=== PATIENT | female | born 1960 | race Caucasian/White ===

== ENCOUNTER 2024-10-01 12:15 | Emergency (ER) | payer OTHER, SELFPAY ==
[2024-10-01 12:17] VITALS: BP 137/87; PULSE 65; RESP 16; TEMP 36.9; O2SAT 97; BMI 37.8
--- NOTE | 2024-10-01 12:31 | EKG12_ITS ---
Test Reason : CP Blood Pressure : */* mmHG Vent. Rate : 53 BPM Atrial Rate : 53 BPM P-R Int : 142 ms QRS Dur : 86 ms QT Int : 450 ms P-R-T Axes : 58 2 49 degrees QTcB Int : 422 ms Sinus bradycardia Otherwise normal ECG Confirmed by BRITTANIE PARSONS, ÓSCAR ([id number]), editor trade journal VANDANA WILHELM ([id number]) on 10/04/2024 8:17:35 AM Referred By: BRITTNEY Confirmed By: ÓSCAR GU MD
[2024-10-01 12:43] LABS: Absolute Lymphocyte Count 1.94 X10^3/uL (0.83-4.51); Absolute Neutrophil Count 3.8 X10^3/uL (2.0-7.7); Basophil# 0.07 X10^3/uL; Eosinophil# 0.33 X10^3/uL; Eosinophils% 4.9 % (0-5); Hematocrit 38.9 % (37-47); Hemoglobin 12.7 g/dL (12.0-15.0); Lymphocyte # 1.94 X10^3/ul (0.83-4.51); Lymphocyte % 28.6 % (19-41); Mean Corp Hgb Conc 32.6 g/dL (32-36); Mean Corpuscular Hgb 26.4 pg (27.0-32.0); Mean Corpuscular Volume 80.9 fL (81-99); Mean Platelet Vol. 9.1 fl (6.2-12.0); Monocyte# 0.59 X10^3/uL; Monocyte% 8.7 % (0-10); NRBC Flagged by Analyzer 0 % (0-5); Neutrophil # 3.82 X10^3/uL (2.7-7.7); Neutrophil % 56.2 % (47-70); Platelet Count 351 K/mm3 (150-450); RBC Distribution Width CV 16.7 % (11.6-14.6); RBC Distribution Width SD 48.6 fl (35.1-43.9); Red Blood Count 4.81 M/mm3 (4.2-5.4); White Blood Count 6.8 K/mm3 (4.4-11.0)
--- NOTE | 2024-10-01 13:00 | RAD_ITS ---
PROCEDURE: CHEST 1 VIEW (PORTABLE) 10/01/2024 REASON FOR EXAM: CHEST PAIN TECHNIQUE: Frontal view of the chest. COMPARISON: None. FINDINGS: Hardware: None. Heart: Normal size. Lungs: Clear. No pleural effusion. Bones: No aggressive lesion. Other: RAD/Chest 1 View (Portable) IMPRESSION: No radiographic evidence of an acute cardiopulmonary process. Reading [facility]
[2024-10-01 13:06] LABS: Anion Gap 11 (5-15); BUN 18 mg/dL (4-19); BUN/Creat Ratio 27.6 RATIO (10-20); Calcium,Total 9.6 mg/dL (7.6-11.0); Carbon Dioxide 25.2 mmol/L (21.0-32.0); Chloride 103 mmol/L (98-108); Creatinine, Serum 0.66 mg/dL (0.70-1.20); EST Glomerular Filtration Rate 99 (>60); Estimated Creatinine Clearance 105.18 ml/min (50-250); Glucose 112 mg/dL (70-99); Potassium 4.2 mmol/L (3.3-5.1); Sodium Level 140 mmol/L (133-145); Troponin T High Sensitivity 8 ng/L (<=14)
[2024-10-01 13:16] VITALS: BP 140/74; PULSE 52; RESP 17; O2SAT 94
--- NOTE | 2024-10-01 13:21 | EDS_ITS ---
HPI History of Present Illness Chief Complaint: Chest Pain Narrative Narrative: 64-year-old female past medical history of coronary artery disease with 3 stents placed last year after NSTEMI is visiting from [place]. She states her is working up here locally. This morning around 11 or 11:30 in the morning, approximately 2 hours ago, she began having chest pressure. It radiates up to the left side of her face and jaw. She slightly nauseated but not diaphoretic, no vomiting. This is how she felt the last time she had a heart attack which was 3 to 4 weeks after her last COVID immunization. She states that she has 2 stents in the LAD and 1 in the front of her heart. No exacerbating or alleviating factors. She does take baby aspirin as well as furosemide and hydrochlorothiazide and potassium as well. PFSH PFS Medical History (Updated 10/01/24 @ 15:14 by Akira Gupta MD) NSTEMI (non-ST elevated myocardial infarction) Medical History no medical history Allergy/AdvReac Type Severity Reaction Status Date / Time adhesive Allergy Rash Verified 10/01/24 12:20 hydrocodone Allergy Other Verified 10/01/24 12:20 scopolamine Allergy Other Verified 10/01/24 12:20 Jdbxpph-Lfj-Uyk Reductase Allergy Pain in Verified 10/01/24 12:20 Inhibitor (Duqoqjv-KOR-OhE joints Reductase Inhibitor) Sulfa (Sulfonamide Allergy Rash Verified 10/01/24 12:20 Antibiotics) Family History no significant family his Surgical History (Updated 10/01/24 @ 12:46 by Leonila Vann) History of lumbar fusion Surgical History no surgical history Social History Smoking Status: Former smoker ROS ROS ED ROS Narrative Review of systems positive for chest pressure radiating to the left face/jaw. Slight nausea but no vomiting. No diaphoresis. No shortness of breath. No leg swelling. No exacerbating or alleviating factors. EXAM Physical Exam Narrative Exam Narrative: Afebrile. Vital signs noted. Nontoxic-appearing. Cardiovascular examination reveals intermittent bradycardia. Lungs clear to auscultation bilaterally. Abdomen is soft and nontender without guarding or rebound. Positive bowel sounds. Neurological examination nonfocal, nonlateralizing. Awake, alert, interactive. No appreciable pedal edema. Const Vital Signs: 10/01/24 12:17 10/01/24 12:41 10/01/24 12:46 Temperature 98.5 F Temperature Source Oral Pulse Rate 65 Respiratory Rate 16 Respiratory Effort Normal Non-Labored Blood Pressure 137/87 H Blood Pressure Mean 103 Pulse Ox 97 Oxygen Delivery Method Room Air Room Air 10/01/24 13:16 10/01/24 14:00 10/01/24 15:00 Temperature Temperature Source Pulse Rate 52 L 54 L 48 L Respiratory Rate 17 15 13 Respiratory Effort Blood Pressure 140/74 H 128/87 H 131/101 H Blood Pressure Mean 96 100 111 Pulse Ox 94 98 99 Oxygen Delivery Method Room Air Room Air Room Air Heart Score History: Slightly/Non-Suspicious ECG: Normal Age: >45 - <65 years Risk Factors: >/= 3 Risk Factors or History of CAD Troponin: </= Normal Limit Score: 3 MDM MDM MDM Narrative Medical decision making narrative: Differential diagnosis includes but not limited to ACS versus pulmonary embolism versus pneumonia versus pneumothorax as a cause of her chest pain and pressure. History and physical does not support pneumonia or pneumothorax. EKG was obtained and interpreted by myself independently as sinus bradycardia at 53 bpm without ectopy or acute ST changes. No STEMI. I reviewed her initial laboratory work and she has normal white count of 6.8 with hemoglobin 12.7, hem atocrit 38.9, platelet count 351. BMP is remarkable for creatinine of 0.66 and glucose 112 with a normal anion gap of 11. Initial high-sensitivity troponin is 8. In discussion with the patient and her , they state that this is what happened initially about a year ago when her first cardiac enzymes were normal, but then they suddenly elevated so she was taken to the catheterization lab. Chest x-ray in 1 view interpreted by myself independently shows no evidence of pneumonia or pneumothorax. I reviewed the radiology report which confirms my independent interpretation. Her second enzyme has returned, and her second high-sensitivity troponin at 2 hours is 10 for a delta of 2. I do feel that this is within the guidelines and that she can be discharged to follow-up with her residential interior designer in [place]. Upon repeat examination she is sitting up at the side of the bed and states that she feels pain-free. I discussed with her the possibility of observation as she states that this is what happened previously, but her second enzyme had been elevated at that time a year ago. She is agreeable to discharge and states that she prefers discharge at this time. I reviewed strict return instructions with her. She is agreeable to the plan. Disposition is discharged home in stable condition. History & Record Review Discussion w/independent historian: Patient and Family () Additional record(s) reviewed:: No prior records Lab Data Attestation: I reviewed the patient's lab results. Labs: Laboratory Results - last 24 hr 10/01/24 10/01/24 12:30 14:30 WBC 6.8 RBC 4.81 Hgb 12.7 Hct 38.9 MCV 80.9 L MCH 26.4 L MCHC 32.6 RDW Std Deviation 48.6 H RDW Coeff of Prakash 16.7 H Plt Count 351 MPV 9.1 Immature Gran % (Auto) 0.600 Neut % (Auto) 56.2 Lymph % (Auto) 28.6 [place] % (Auto) 8.7 Eos % (Auto) 4.9 Baso % (Auto) 1.0 Absolute Neuts (auto) 3.8 Absolute Lymphs (auto) 1.94 Nucleated RBC % 0 Sodium 140 Potassium 4.2 Chloride 103 Carbon Dioxide 25.2 Anion Gap 11 BUN 18 Creatinine 0.66 L Estim Creat Clear Calc 105.18 Est GFR (MDRD) Non-Af 99 BUN/Creatinine Ratio 27.6 H Glucose 112 H Calcium 9.6 Troponin T High Sens 8 Troponin T Hi Sens 2 Hr 10 Radiography Chest X-Ray - ED: 1 View, Read by ED Physician, Read by Radiologist and No Acute Disease Diagnostic Testing: Clinical Impression(s) from Imaging Studies Chest X-Ray 10/01/24 13:00 IMPRESSION: No radiographic evidence of an acute cardiopulmonary process. Reading Location: [facility] Discharge Plan Triage Chief Complaint: Chest Pain ED Provider: Akira Gupta Dx/Rx/DC Orders Clinical Impression: Chest pain, History of CAD (coronary artery disease) Instructions: ED Chest Pain, Uncertain Cause Primary Care Provider: BRETT BRYANT Referrals: BRETT BRYANT [Other] Activity Restrictions/Additional Instructions: Follow-up with your residential interior designer soon as possible. Return to the emergency department with increased pain, shortness of breath, new or worsening symptoms. Continue your previous medications as directed. Print Language: Kazakh Disposition Disposition: Home, Self Care
[2024-10-01 14:00] VITALS: BP 128/87; PULSE 54; RESP 15; O2SAT 98
--- NOTE | 2024-10-01 14:30 | CM.ED ---
Social Work Date of referral: 10/01/24 Reason For Referral: Request for Advanced Care Directives (ACD's)Needed Referred by: Social Work Identification Patient provided consent to Social Work visit. show worker requested patient bring in a copy of ACD's either during next visit or when out in the community (can drop off). Patient stated she resides in [place] and is only here in town for 3 months. Patient requested blank forms so she can update ACD's which social worker aide provided. No other issues/concerns/requests. Karina Bates, HOME HEALTH SCHEDULER, ASSISTANT LOAN PROCESSOR, 10/01/2024
[2024-10-01 15:00] VITALS: BP 131/101; PULSE 48; RESP 13; O2SAT 99
[2024-10-01 15:14] LABS: Troponin T High Sens 2 HR 10 ng/L (<=14)
[2024-10-01 15:38] VITALS: BP 115/95; PULSE 52; RESP 13; TEMP 36.9; O2SAT 99
== END 2024-10-01 15:49 | disposition home or self-care (01) ==
PROVIDERS: Emergency Provider Emergency Medicine; Visit Provider Emergency Medicine
DX: R07.89 Other chest pain (principal); R11.0 Nausea; I25.10 Atherosclerotic heart disease of native coronary artery without angina pectoris; Z95.5 Presence of coronary angioplasty implant and graft; I25.2 Old myocardial infarction; Z53.20 Procedure and treatment not carried out because of patient's decision for unspecified reasons; Z79.82 Long term (current) use of aspirin; Z79.899 Other long term (current) drug therapy; Z87.891 Personal history of nicotine dependence
CPT/HCPCS: 71045; 80048; 84484; 85025; 93005; 99283; A4216